=== PATIENT | female | born 1945 | race Caucasian/White ===

== ENCOUNTER 2023-01-26 23:36 | Observation (INO) | payer OTHER ==
[~2023-01-26] VITALS: Ht 167.6 cm; Wt 57.8 kg
[2023-01-26 23:57] LABS: BASOPHILS % (AUTO) 0.3 % (0.0-5.0); EOSINOPHILS % (AUTO) 0.1 % (0.0-8.0); HEMATOCRIT 38.9 % (36-48); LYMPHOCYTES % (AUTO) 6.4 % (21.0-51.0); MEAN CORPUSCULAR HEMOGLOBIN 31.8 pg (27.0-33.0); MEAN CORPUSCULAR HGB CONC 36.2 g/dL (32.0-36.0); MEAN CORPUSCULAR VOLUME 87.8 fL (79-99); MONOCYTES % (AUTO) 4.6 % (3.0-13.0); NEUTROPHILS % (AUTO) 88.2 % (40.0-77.0); PLATELET COUNT (AUTO) 230 K/uL (130-400); RED BLOOD CELL COUNT(AUTO) 4.43 MIL/uL (4.00-5.50); RED CELL DISTRIBUTION WIDTH 12.1 % (11.0-15.5)
[2023-01-27] MEDS ORDERED: LACTATED RINGERS 1000ML 1,000 ML IV ONE
[2023-01-27 00:17] LABS: APPEARANCE,URINE CLEAR (CLEAR); BILIRUBIN,URINE NEGATIVE (NEGATIVE); COLOR,URINE YELLOW (YELLOW); GLUCOSE, URINE (UA) NEGATIVE (NEGATIVE); KETONES,URINE 60 mg/dL (NEGATIVE); LEUKOCYTE ESTERASE ,URINE 25 Leu/uL (NEGATIVE); NITRATE,URINE NEGATIVE (NEGATIVE); OCCULT BLOOD,URINE SMALL (NEGATIVE); PROTEIN,URINE 20 mg/dL (NEGATIVE); UROBILINOGEN,URINE 0.2 mg/dL (0.2-1.0)
[2023-01-27 00:21] LABS: INR 0.99 (0.85-1.15); PROTHROMBIN TIME 11.5 SEC (9.6-11.6)
[2023-01-27 00:22] LABS: PARTIAL THROMBOPLASTIN TIME 23.6 SEC (26.3-35.5)
[2023-01-27 00:31] LABS: MUCUS,URINE RARE LPF (None Seen); SQUAMOUS EPITHELIAL CELL,UR RARE /HPF (0-2)
[2023-01-27 00:43] LABS: B-TYPE NATRIURETIC PEPTIDE 46 pg/mL (0-100)
[2023-01-27 00:45] LABS: ALBUMIN 4.4 g/dL (3.5-5.0); POTASSIUM 3.3 mmol/L (3.5-5.1)
[2023-01-27] MEDS ORDERED: TEMAZEPAM 15 MG CAPSULE PO PRN (03:30)
[2023-01-27] MEDS ORDERED: ONDANSETRON 4MG INJ IVP PRN (03:30)
[2023-01-27] MEDS ORDERED: ACETAMINOPHEN 325 MG TAB PO PRN (03:30)
[2023-01-27] MEDS ORDERED: CLONIDINE HCL 0.1 MG TABLET PO PRN (03:30)
[2023-01-27] MEDS ORDERED: ALBUTEROL 0.083% 2.5 MG/3 ML INH IH PRN (03:30)
[2023-01-27] MEDS ORDERED: HYDRALAZINE 20MG/ML VIAL IV PRN (03:30)
[2023-01-27] MEDS ORDERED: ACETAMINOPHEN 650 MG SUPPOSITORY RC PRN (03:30)
[2023-01-27] MEDS ORDERED: LABETALOL 20MG SYG IV PRN (03:30)
[2023-01-27] MEDS ORDERED: PHARMACY COMMUNICATION MISC SCH ×2 (04:00→08:30)
[2023-01-27] MEDS ORDERED: CEFTRIAXONE 1G VIAL ONE (04:15)
[2023-01-27] MEDS: 0.9%NACL 1000ML 1,000 ML IV SCH ×3 (04:19→23:40)
[2023-01-27] MEDS: INSULIN HUMULIN R 100 UNIT/ML 3ML SQ SCH ×4 (08:00→21:00)
[2023-01-27] MEDS: ASPIRIN 81MG CHEW TAB PO SCH (09:00)
[2023-01-27] MEDS: ENOXAPARIN SODIUM 30 MG/0.3 ML SQ SCH (09:00)
[2023-01-27 11:20] LABS: CREATININE 0.7 mg/dL (0.5-1.5); POTASSIUM 3.7 mmol/L (3.5-5.1)
[2023-01-27] MEDS: SIMVASTATIN 20 MG TABLET PO SCH (21:34)
[2023-01-28] MEDS: 0.9%NACL 1000ML 1,000 ML IV SCH ×4 (00:55→20:39)
[2023-01-28 01:58] VITALS: BP 128/55
[2023-01-28] MEDS ORDERED: ATOR40TA71 PO (02:38)
[2023-01-28] MEDS ORDERED: METO-408 PO (02:38)
[2023-01-28] MEDS ORDERED: AEC81 PO (02:38)
[2023-01-28 04:11] VITALS: BP 115/51
[2023-01-28] MEDS: CEFTRIAXONE 2GM VIAL IVPB SCH (04:41)
[2023-01-28 05:46] LABS: BASOPHILS % (AUTO) 0.8 % (0.0-5.0); EOSINOPHILS % (AUTO) 1.9 % (0.0-8.0); HEMATOCRIT 32.4 % (36-48); LYMPHOCYTES % (AUTO) 21.9 % (21.0-51.0); MEAN CORPUSCULAR HEMOGLOBIN 32.4 pg (27.0-33.0); MEAN CORPUSCULAR HGB CONC 35.2 g/dL (32.0-36.0); MONOCYTES % (AUTO) 12.8 % (3.0-13.0); NEUTROPHILS % (AUTO) 62.3 % (40.0-77.0); PLATELET COUNT (AUTO) 193 K/uL (130-400); RED BLOOD CELL COUNT(AUTO) 3.52 MIL/uL (4.00-5.50); RED CELL DISTRIBUTION WIDTH 12.7 % (11.0-15.5); WHITE BLOOD COUNT (AUTO) 7.3 K/uL (4.8-10.8)
[2023-01-28 06:16] LABS: HEMOGLOBIN A1C 5.3 % (4.0-6.0)
[2023-01-28 06:20] LABS: ALBUMIN 3.2 g/dL (3.5-5.0); BILIRUBIN,DIRECT 0.2 mg/dL (0.0-0.3); CREATININE 0.8 mg/dL (0.5-1.5); MAGNESIUM 1.8 mg/dL (1.80-2.40); PHOSPHORUS 1.9 mg/dL (2.5-4.9); THYROID STIMULATING HORMONE 1.59 uIU/mL (0.36-3.74); TOTAL PROTEIN, SERUM 5.9 g/dL (6.0-8.3)
[2023-01-28 06:30] LABS: B-TYPE NATRIURETIC PEPTIDE 158 pg/mL (0-100)
[2023-01-28] MEDS: INSULIN HUMULIN R 100 UNIT/ML 3ML SQ SCH ×4 (06:45→20:07)
[2023-01-28] MEDS ORDERED: POTASSIUM CHLORIDE 10% ELIXIR 20 MEQ/15 ML UDCUP PO PRN (07:00)
[2023-01-28] MEDS ORDERED: POTASSIUM CHLORIDE 20MEQ/100ML 100 ML IV PRN (07:00)
[2023-01-28 07:58] VITALS: BP 119/63
[2023-01-28] MEDS ORDERED: MAGNESIUM 2GM PREMIX 50ML 50 ML IV ONE (08:38)
[2023-01-28] MEDS: ASPIRIN 81MG CHEW TAB PO SCH (08:44)
[2023-01-28] MEDS: ENOXAPARIN SODIUM 30 MG/0.3 ML SQ SCH (08:44)
[2023-01-28 11:02] VITALS: BP 135/77
[2023-01-28] MEDS: KCL 20 MEQ ERTAB PO PRN ×2 (12:01→14:40)
[2023-01-28 16:22] LABS: MAGNESIUM 2.2 mg/dL (1.80-2.40); POTASSIUM 3.9 mmol/L (3.5-5.1)
[2023-01-28 16:31] VITALS: BP 127/88
[2023-01-28 20:25] VITALS: BP 150/66
[2023-01-28] MEDS: FAMOTIDINE 20MG VIAL IV SCH (20:39)
[2023-01-28] MEDS: SIMVASTATIN 20 MG TABLET PO SCH (20:39)
[2023-01-29] VITALS (7 sets, daily range): BP systolic 120–148; BP diastolic 63–81
[2023-01-29] MEDS: 0.9%NACL 1000ML 1,000 ML IV SCH ×4 (03:38→23:33)
[2023-01-29] MEDS: CEFTRIAXONE 2GM VIAL IVPB SCH (03:40)
[2023-01-29 05:26] LABS: HEMATOCRIT 32.5 % (36-48); MEAN CORPUSCULAR HEMOGLOBIN 31.8 pg (27.0-33.0); MEAN CORPUSCULAR HGB CONC 33.5 g/dL (32.0-36.0); MEAN CORPUSCULAR VOLUME 94.8 fL (79-99); RED BLOOD CELL COUNT(AUTO) 3.43 MIL/uL (4.00-5.50); RED CELL DISTRIBUTION WIDTH 12.8 % (11.0-15.5); WHITE BLOOD COUNT (AUTO) 6.8 K/uL (4.8-10.8)
[2023-01-29] MEDS: INSULIN HUMULIN R 100 UNIT/ML 3ML SQ SCH ×4 (05:33→20:22)
[2023-01-29 06:03] LABS: CREATININE 0.7 mg/dL (0.5-1.5); MAGNESIUM 2.1 mg/dL (1.80-2.40); POTASSIUM 3.6 mmol/L (3.5-5.1)
[2023-01-29] MEDS: ASPIRIN 81MG CHEW TAB PO SCH (09:37)
[2023-01-29] MEDS: ENOXAPARIN SODIUM 30 MG/0.3 ML SQ SCH (09:37)
[2023-01-29] MEDS: FAMOTIDINE 20MG VIAL IV SCH ×2 (09:38→20:22)
[2023-01-29] MEDS: KCL 20 MEQ ERTAB PO PRN ×2 (11:51→18:00)
[2023-01-29] MEDS: SIMVASTATIN 20 MG TABLET PO SCH (20:22)
[2023-01-30 03:31] VITALS: BP 136/74
[2023-01-30] MEDS: CEFTRIAXONE 2GM VIAL IVPB SCH (03:54)
[2023-01-30 05:23] LABS: HEMATOCRIT 34.2 % (36-48); MEAN CORPUSCULAR HEMOGLOBIN 32.5 pg (27.0-33.0); MEAN CORPUSCULAR HGB CONC 34.8 g/dL (32.0-36.0); MEAN CORPUSCULAR VOLUME 93.4 fL (79-99); RED BLOOD CELL COUNT(AUTO) 3.66 MIL/uL (4.00-5.50); RED CELL DISTRIBUTION WIDTH 12.7 % (11.0-15.5); WHITE BLOOD COUNT (AUTO) 7.1 K/uL (4.8-10.8)
[2023-01-30 05:49] LABS: CREATININE 0.6 mg/dL (0.5-1.5); POTASSIUM 3.9 mmol/L (3.5-5.1)
[2023-01-30] MEDS: 0.9%NACL 1000ML 1,000 ML IV SCH (06:24)
[2023-01-30] MEDS: INSULIN HUMULIN R 100 UNIT/ML 3ML SQ SCH ×2 (06:25→11:30)
[2023-01-30 08:00] VITALS: BP 148/76
[2023-01-30] MEDS: FAMOTIDINE 20MG VIAL IV SCH (08:03)
[2023-01-30] MEDS: ASPIRIN 81MG CHEW TAB PO SCH (08:03)
[2023-01-30] MEDS: ENOXAPARIN SODIUM 30 MG/0.3 ML SQ SCH (08:04)
[2023-01-30 12:00] VITALS: BP 142/84
== END 2023-01-30 15:00 | disposition home or self-care (01) ==
LOC: EDH 23:36 → EDHIP 01-27 04:50 → 4BH 01-28 01:29
PROVIDERS: ADMIT Internal Medicine Critical Care Medicine; ATTEND Internal Medicine Critical Care Medicine
DX: G93.41 Metabolic encephalopathy (principal); E87.1 Hypo-osmolality and hyponatremia; N30.00 Acute cystitis without hematuria; E87.8 Other disorders of electrolyte and fluid balance, not elsewhere classified; I10 Essential (primary) hypertension; E78.00 Pure hypercholesterolemia, unspecified; M62.82 Rhabdomyolysis; I25.2 Old myocardial infarction; Z79.899 Other long term (current) drug therapy
CPT/HCPCS: 82550 ×7; 83721; 83874 ×4; 84484 ×5; 80053; 83880 ×2; 85025 ×2; 85610; 85730; 71045; 70450; 93005; 96372 ×4; 96361 ×4; 99285; 80048 ×4; 84300; 82140; 82948 ×15; 83930; 83935; 81001; 36415 ×5; 93306; 93356; 96365; 96366 ×3; 96375; 96367; 83036; 84443; 80076; 83735 ×3; 84100 ×2; 84132; 80061; 83605; 84145; 96376 ×2; 85027 ×2; G0378 ×82; J7030 ×2; J1650 ×4; J0696 ×4; J3475; J3490 ×4; J3480